=== PATIENT | male | born 1960 | race Caucasian/White ===

== ENCOUNTER 2018-06-02 16:32 | Emergency (ER) | payer OTHER ==
[~2018-06-02] VITALS: Ht 167.6 cm; Wt 68.2 kg
[2018-06-02] MEDS ORDERED: KETOROLAC TROMETHAMINE 60 MG/2 ML VIAL IM ONE (16:45)
[2018-06-02 18:42] VITALS: BP 122/67
== END 2018-06-02 18:46 | disposition home or self-care (01) ==
LOC: EMS 16:33
DX: L02.31 Cutaneous abscess of buttock (principal); F11.90 Opioid use, unspecified, uncomplicated; F17.210 Nicotine dependence, cigarettes, uncomplicated
CPT/HCPCS: 96372; 99283; J1885

== ENCOUNTER 2021-05-20 15:08 | Emergency (ER) | payer OTHER ==
[~2021-05-20] VITALS: Ht 167.6 cm; Wt 63.5 kg
[2021-05-20 15:20] VITALS: BP 124/81
== END 2021-05-20 17:45 | disposition home or self-care (01) ==
LOC: EMS 15:14
DX: F42.4 Excoriation (skin-picking) disorder (principal); F41.9 Anxiety disorder, unspecified
CPT/HCPCS: 99283; Z7502

== ENCOUNTER 2021-06-20 17:22 | Emergency (ER) | payer OTHER ==
[~2021-06-20] VITALS: Ht 167.6 cm; Wt 63.6 kg
[2021-06-20 17:25] VITALS: BP 109/83
== END 2021-06-20 20:00 | disposition left against medical advice (07) ==
LOC: EMS 17:24
DX: M79.89 Other specified soft tissue disorders (principal); Z53.21 Procedure and treatment not carried out due to patient leaving prior to being seen by health care provider

== ENCOUNTER 2024-04-02 18:21 | Emergency (ER) | payer OTHER ==
[~2024-04-02] VITALS: Ht 165.1 cm; Wt 59.1 kg
[2024-04-02 18:25] VITALS: BP 150/84; PULSE 92; RESP 15; TEMP 98.2
== END 2024-04-02 21:30 | disposition left against medical advice (07) ==
LOC: EMS 18:21
DX: M79.602 Pain in left arm (principal); Z53.21 Procedure and treatment not carried out due to patient leaving prior to being seen by health care provider

== ENCOUNTER 2025-07-22 09:49 | Emergency (ER) | payer MEDICARE, OTHER ==
[~2025-07-22] VITALS: Ht 167.6 cm; Wt 72.7 kg
[2025-07-22 09:58] VITALS: TEMP 97.6
[2025-07-22] MEDS: SULFACETAMIDE SODIUM 10% 15 ML OPHTHALMIC SOLUTION OU ONE (13:40)
[2025-07-22 14:11] VITALS: BP 151/73; PULSE 71; RESP 18; O2SAT 99
== END 2025-07-22 14:15 | disposition home or self-care (01) ==
LOC: EMS 09:49
DX: H10.89 Other conjunctivitis (principal); H57.89 Other specified disorders of eye and adnexa; L29.9 Pruritus, unspecified; F15.90 Other stimulant use, unspecified, uncomplicated; F17.210 Nicotine dependence, cigarettes, uncomplicated; Z98.890 Other specified postprocedural states
CPT/HCPCS: 99282; Z7502; Z7610